=== PATIENT | male | born 2000 | race Asian ===

== ENCOUNTER 2020-12-16 02:02 | Emergency (ER) | payer OTHER ==
[~2020-12-16] VITALS: Ht 154.9 cm; Wt 49.9 kg
[2020-12-16] MEDS ORDERED: ALDACTONE100 M1 PO (02:09)
[2020-12-16] MEDS ORDERED: CLON.3 (02:09)
[2020-12-16] MEDS ORDERED: SPIR25 (02:09)
[2020-12-16] MEDS ORDERED: Aldactone50 MG PO (02:10)
[2020-12-16] MEDS ORDERED: PROG100 PO (02:11)
[2020-12-16 02:20] LABS: Calcium, Ionized (POC) 1.19 mmol/L (1.10-1.46); Chloride (POC) 102 mmol/L (98-108); Creatinine (POC) 0.8 mg/dL (0.8-1.3); Glucose (ISTAT POC) 97 mg/dL (70-99); Hemoglobin (POC) 11.2 g/dL (13.5-17.5); Potassium (POC) 3.7 mmol/L (3.5-5.5); Sodium (POC) 138 mmol/L (135-148); Total CO2 (POC) 25 mmol/L (21-32)
== END 2020-12-16 02:52 | disposition home or self-care (01) ==
LOC: ER 02:02 → EDSEX 02:02 → ER 02:52
PROVIDERS: Emergency Medicine
DX: K59.00 Constipation, unspecified (principal)
CPT/HCPCS: 74018; 80047; 85014; 99284-25; A9270

== ENCOUNTER 2023-08-31 15:43 | Emergency (ER) | payer OTHER ==
[~2023-08-31] VITALS: Ht 154.9 cm; Wt 57.6 kg
[~2023-08-31 15:43] MED LIST: ALDACTONE100 M1 PO; Aldactone50 MG PO; CLON.3; PROG100 PO; SPIR25
[2023-08-31 18:18] LABS: BASOPHILS ABSOLUTE AUTO 0.06 K/mm3 (0.00-0.23); BASOPHILS PERCENT AUTO 1 % (0-2); EOSINOPHILS ABSOLUTE AUTO 0.32 K/mm3 (0.00-0.68); EOSINOPHILS PERCENT AUTO 4 % (0-6); Hematocrit 34.9 % (33.0-51.0); Hemoglobin 11.6 g/dL (11.5-16.0); IMMATURE GRAN ABSOLUTE AUTO 0.04 K/mm3 (0.00-0.10); IMMATURE GRAN PERCENT AUTO 1 % (0-1); LYMPHOCYTES ABSOLUTE AUTO 2.24 K/mm3 (0.84-5.20); LYMPHOCYTES PERCENT AUTO 26 % (21-46); MONOCYTES PERCENT AUTO 6 % (4-13); Mean Corpuscular HGB 28.9 pg (26.0-34.0); Mean Corpuscular HGB Conc 33.2 g/dL (31.5-36.5); Mean Corpuscular Volume 87 fL (80-100); Mean Platelet Volume 10.6 fL (9.1-12.4); NEUTROPHILS ABSOLUTE AUTO 5.61 K/mm3 (1.96-9.15); NEUTROPHILS PERCENT AUTO 64 % (41-73); Platelet Count 318 K/mm3 (150-400); RDW Coefficient Variation 13.8 % (11.7-14.2); Red Blood Cell Count 4.01 M/mm3 (3.80-5.20); White Blood Cell Count 8.77 K/mm3 (4.00-11.30)
[2023-08-31 18:34] LABS: C-REACTIVE PROTEIN, EXT RANGE <0.290 mg/dL (0.000-0.300)
[2023-08-31 18:44] LABS: Alanine Aminotransfer (ALT/SGP 32 U/L (12-78); Albumin/Globulin Ratio 1.1 (0.8-1.8); Alk Phos 58 U/L (50-136); Anion Gap 8 mmol/L (3-11); Aspartate Aminotrans (AST/SGOT 22 U/L (12-37); Bilirubin, Total 0.5 mg/dL (0.1-1.0); Blood Urea Nitrogen 10 mg/dL (8-24); Bun/Creatinine Ratio 13.1 (12.0-20.0); CO2, Blood 26 mmol/L (21-32); Calcium, Blood 8.4 mg/dL (8.5-10.1); Chloride, Blood 105 mmol/L (98-108); Creatinine, Blood 0.76 mg/dL (0.40-1.00); Globulin, Blood 3.7 g/dL (2.2-4.0); Glomerular Filtration Rate 111 (60-); Glucose, Blood 90 mg/dL (70-99); Potassium, Blood 3.7 mmol/L (3.5-5.5); Sodium, Blood 135 mmol/L (136-145); Total Protein, Blood 7.7 g/dL (6.4-8.2)
[2023-08-31] MEDS ORDERED: PREG75 PO (20:24)
[2023-08-31 20:30] VITALS: BP 104/73
[2023-09-03 15:09] LABS: LYME VLSE1/PEPC10 ABS, ELISA 0.41 IV (<=0.90)
[2023-09-04 08:11] LABS: ANTINUCLEAR AB (ANA),HEP-2,IGG <1:80 (<1:80)
== END 2023-08-31 20:38 | disposition home or self-care (01) ==
LOC: ER 15:43
PROVIDERS: Emergency Medicine
DX: M25.50 Pain in unspecified joint (principal); Z88.8 Allergy status to other drugs, medicaments and biological substances; Z79.899 Other long term (current) drug therapy; J45.909 Unspecified asthma, uncomplicated
CPT/HCPCS: 80053; 84443; 85025; 85651; 86039; 86140; 86618; 99284

== ENCOUNTER 2024-04-10 17:50 | Emergency (ER) | payer OTHER ==
[~2024-04-10] VITALS: Ht 167.6 cm; Wt 59.0 kg
[~2024-04-10 17:50] MED LIST changes: +PREG75 PO
[2024-04-10 19:31] LABS: BASOPHILS ABSOLUTE AUTO 0.07 K/mm3 (0.00-0.23); BASOPHILS PERCENT AUTO 1 % (0-2); EOSINOPHILS ABSOLUTE AUTO 0.75 K/mm3 (0.00-0.68); EOSINOPHILS PERCENT AUTO 6 % (0-6); Hematocrit 34.8 % (33.0-51.0); Hemoglobin 11.8 g/dL (11.5-16.0); IMMATURE GRAN ABSOLUTE AUTO 0.05 K/mm3 (0.00-0.10); IMMATURE GRAN PERCENT AUTO 0 % (0-1); LYMPHOCYTES ABSOLUTE AUTO 2.24 K/mm3 (0.84-5.20); LYMPHOCYTES PERCENT AUTO 18 % (21-46); MONOCYTES ABSOLUTE AUTO 0.76 K/mm3 (0.16-1.47); MONOCYTES PERCENT AUTO 6 % (4-13); Mean Corpuscular HGB 29.3 pg (26.0-34.0); Mean Corpuscular HGB Conc 33.9 g/dL (31.5-36.5); Mean Corpuscular Volume 86 fL (80-100); Mean Platelet Volume 10.4 fL (9.1-12.4); NEUTROPHILS ABSOLUTE AUTO 8.62 K/mm3 (1.96-9.15); NEUTROPHILS PERCENT AUTO 69 % (41-73); Platelet Count 323 K/mm3 (150-400); RDW Coefficient Variation 13.3 % (11.7-14.2); RDW Standard Deviation 41.5 fL (35.1-46.3); Red Blood Cell Count 4.03 M/mm3 (3.80-5.20); White Blood Cell Count 12.49 K/mm3 (4.00-11.30)
[2024-04-10 19:49] LABS: Beta HCG, Quantitative, Serum <1 mIU/mL (0-3); Ethanol (Alcohol), Blood, Med <3 mg/dL
[2024-04-10 19:50] LABS: Alanine Aminotransfer (ALT/SGP 30 U/L (12-78); Albumin/Globulin Ratio 1.1 (0.8-1.8); Alk Phos 66 U/L (50-136); Anion Gap 9 mmol/L (3-11); Aspartate Aminotrans (AST/SGOT 23 U/L (12-37); Bilirubin, Total 0.5 mg/dL (0.1-1.0); Blood Urea Nitrogen 14 mg/dL (8-24); Bun/Creatinine Ratio 18.5 (12.0-20.0); CO2, Blood 25 mmol/L (21-32); Calcium, Blood 9.2 mg/dL (8.5-10.1); Chloride, Blood 102 mmol/L (98-108); Creatinine, Blood 0.76 mg/dL (0.40-1.00); Globulin, Blood 3.7 g/dL (2.2-4.0); Glomerular Filtration Rate 111 (60-); Glucose, Blood 89 mg/dL (70-99); Potassium, Blood 3.7 mmol/L (3.5-5.5); Sodium, Blood 132 mmol/L (136-145); Total Protein, Blood 7.7 g/dL (6.4-8.2)
[2024-04-10 20:00] LABS: Source, Urine Clean Catch
[2024-04-10 20:07] LABS: Appearance, Urine Clear (Clear); Bilirubin, Urine Neg (Neg); Blood, Urine Neg (Neg); Color, Urine Yellow (P-Yellow); Glucose Qualitative, Urine Neg (Neg); Ketones, Urine Neg (Neg); Leukocyte Esterase, Urine Neg (Neg); Nitrite, Urine Neg (Neg); Protein, Urine Neg (Neg); Urobilinogen, Urine NORM (Normal)
[2024-04-10 20:19] LABS: U Amphetamine Screen Not Detected; U Barbituate Screen Not Detected; U Benzodiazapine Screen Not Detected; U Buprenorphine Screen Not Detected; U Cannabinoids Screen Not Detected; U Cocaine Screen Not Detected; U Methadone Screen Not Detected; U Methamphetamine Screen Not Detected; U Opiates Screen Not Detected; U Oxycodone Screen Not Detected; U Phencyclidine Screen Not Detected
[2024-04-10] MEDS ORDERED: Acetaminophen 500 MG Tab PO ONE (21:10)
[2024-04-10] MEDS ORDERED: NS 1,000 ML IV SCH (21:10)
[2024-04-10] MEDS ORDERED: LORazepam 2 MG/ML 1ML Injection IV ONE (21:10)
[2024-04-10] MEDS ORDERED: IBUP600 PO (22:06)
[2024-04-10] MEDS ORDERED: ACET500 PO (22:06)
[2024-04-10 23:00] VITALS: BP 105/85
== END 2024-04-10 23:02 | disposition home or self-care (01) ==
LOC: ER 17:50
PROVIDERS: Emergency Medicine
DX: S06.0X9A Concussion with loss of consciousness of unspecified duration, initial encounter (principal); J45.909 Unspecified asthma, uncomplicated; Z91.018 Allergy to other foods; Z88.8 Allergy status to other drugs, medicaments and biological substances; Z79.899 Other long term (current) drug therapy; V43.52XA Car driver injured in collision with other type car in traffic accident, initial encounter
CPT/HCPCS: 70450; 71045; 72125; 80053; 80320; 81003; 84702; 85025; 96374; 99285-25; A9270; J2060; J7030

== ENCOUNTER 2024-06-09 11:34 | Day surgery (SDC) | payer OTHER ==
[~2024-06-09] VITALS: Ht 154.9 cm; Wt 63.5 kg
[~2024-06-09 11:34] MED LIST changes: +ACET500 PO; +IBUP600 PO; +Lactated Ringer's 1,000 ML IV ONE; +Lactated Ringer's 1,000 ML ONE; +Lidocaine 1%-Epineph 1:200000 30 ML SDV ONE
[2024-06-09] MEDS ORDERED: Rocuronium Bromide 10 MG/ML 5ML Injection IV ONE (12:16)
[2024-06-09] MEDS ORDERED: propofoL 20 ML IV ONE (12:17)
[2024-06-09] MEDS ORDERED: FentaNYL Citrate 50 MCG/ML 2 ML Injection ONE ×3 (12:18→16:43)
[2024-06-09] MEDS ORDERED: ALBU90OI INH (12:21)
[2024-06-09] MEDS ORDERED: Ventolin5 MG/1 ML INH (12:21)
[2024-06-09] MEDS ORDERED: DUPIXENT P300 MG/2 M SQ (12:25)
[2024-06-09] MEDS ORDERED: ESTROGEL TOP (12:25)
[2024-06-09] MEDS ORDERED: ESTROGEN PO (12:27)
[2024-06-09] MEDS ORDERED: Ativan1 MG PO ×2 (12:28→12:30)
[2024-06-09] MEDS ORDERED: GABA300 PO (12:28)
[2024-06-09] MEDS ORDERED: PRAZ1 PO (12:30)
[2024-06-09] MEDS ORDERED: VALA500 PO (12:33)
[2024-06-09] MEDS ORDERED: QUET25 PO (12:33)
[2024-06-09] MEDS ORDERED: ERGO50000 PO (12:34)
[2024-06-09] MEDS ORDERED: Flonase 0.05% N16 GM (12:36)
[2024-06-09] MEDS ORDERED: Lactated Ringer's 1,000 ML IV ONE ×3 (12:49→16:31)
[2024-06-09] MEDS ORDERED: EPINEPhrine HCl 1 MG / ML 30ML Vial ONE (13:44)
[2024-06-09] MEDS ORDERED: Lidocaine HCl 4% 5 ML SDA ONE (13:45)
[2024-06-09] MEDS ORDERED: Midazolam HCl 1MG / ML 2ML Vial ONE (14:03)
[2024-06-09] MEDS ORDERED: Sugammadex Sodium 200 MG/2ML SDV (100 MG/ML) ONE (14:20)
[2024-06-09] MEDS ORDERED: Ondansetron HCl 2 MG / ML 2ML Vial ONE (14:20)
[2024-06-09] MEDS ORDERED: Dexamethasone Sod Phos 10 MG/ML 1ML VIAL ONE (14:20)
--- NOTE | 2024-06-09 15:24 | NUR ---
06/09/24 1524 ALFREDO GRAY 1519, JAW THRUST/HEAD TILT PER ANESTHESIA, SATS DROPPED TO 88% ON RA. NOW ON 15L BLOW BY. RESPIRATIONS REGULAR, PILLOW REMOVED TO IMPROVE VENTILATION. OPA IN PLACE, PT RESTING WITH EYES CLOSED, NOT YET RESPONDING. SATS 99% AT THIS TIME.
[2024-06-09] MEDS ORDERED: OxyCODONE HCL 5 MG TAB ONE (16:06)
--- NOTE | 2024-06-09 16:24 | NUR ---
06/09/24 1629 ALFREDO GRAY PATIENT PAIN GOAL IS A 4, RESTING IN CHAIR QUIETLY
[2024-06-09 17:48] VITALS: BP 129/92
== END 2024-06-09 18:03 | disposition home or self-care (01) ==
LOC: ORSCSDS 11:34
PROVIDERS: Otolaryngology
PROC: 09SL0ZZ Reposition Nasal Turbinate, Open Approach (ICD-10-PCS; principal; 2024-06-09 13:00)
PROC: 09BM0ZZ Excision of Nasal Septum, Open Approach (ICD-10-PCS; principal; 2024-06-09 13:00)
DX: J34.2 Deviated nasal septum (principal); J34.3 Hypertrophy of nasal turbinates; J32.8 Other chronic sinusitis; J45.909 Unspecified asthma, uncomplicated; K21.9 Gastro-esophageal reflux disease without esophagitis; M79.7 Fibromyalgia; Z79.899 Other long term (current) drug therapy; F64.0 Transsexualism
CPT/HCPCS: A9270; J0171; J1100; J2003; J2250; J2405; J2704; J3010; J7120

== ENCOUNTER → 2024-11-21 | Outpatient (CLI) | payer OTHER ==
[~2024-11-21] MED LIST changes: +ALBU90OI INH; +Ativan1 MG PO; +DUPIXENT P300 MG/2 M SQ; +ERGO50000 PO; +ESTROGEL TOP; +ESTROGEN PO; +Flonase 0.05% N16 GM; +GABA300 PO; -Lactated Ringer's 1,000 ML IV ONE; -Lactated Ringer's 1,000 ML ONE; -Lidocaine 1%-Epineph 1:200000 30 ML SDV ONE; +PRAZ1 PO; +QUET25 PO; +VALA500 PO; +Ventolin5 MG/1 ML INH
[2024-11-23 16:54] LABS: CALPROTECTIN,FECAL 16 ug/g (<=49)
== END ==
LOC: LAB 16:37 → LAB SHORT 16:37
PROVIDERS: Physician Assistant Medical
DX: R10.9 Unspecified abdominal pain (principal)
CPT/HCPCS: 83993